=== PATIENT | female | born 1970 | race Caucasian/White ===

== ENCOUNTER 2017-08-27 10:48 | Emergency (ER) | payer MEDICAID ==
[~2017-08-27 10:48] MED LIST: CLINDAMYCIN HC300 MG PO; LAC PO; LEVEMIR100 U/M1 SQ; NEOSPORIN1 OIN TP; ZOF4 PO
[2017-08-27 12:08] LABS: RED CELL DISTRIBUTION WIDTH 12.7 % (11.5-14.5)
[2017-08-27 12:11] LABS: PLATELET COUNT 164 x10^3mcL (130-400)
[2017-08-27 12:19] LABS: CALCIUM 8.5 mg/dL (8.5-10.1); CHLORIDE SERUM 99 mmol/L (98-107); CREATININE SERUM 0.9 mg/dL (0.6-1.0); GFR1 > 60 mL/min; GLUCOSE SERUM 247 mg/dL (74-106); POTASSIUM SERUM 3.7 mmol/L (3.5-5.1); SODIUM SERUM 132 mmol/L (136-145)
[2017-08-27 12:22] LABS: BASOPHIL % 4.2 % (0-2)
[2017-08-27 12:26] LABS: ALBUMIN 3.4 g/dL (3.4-5.0); ALKALINE PHOSPHATASE 81 U/L (46-116); ALT/SGPT 30 U/L (14-59); AST/SGOT 21 U/L (15-37); BILIRUBIN TOTAL 0.81 mg/dL (0.20-1.00); LIPASE 118 IU/L (73-393); TOTAL PROTEIN, SERUM 7.5 g/dL (6.4-8.2)
[2017-08-27 12:36] LABS: AMYLASE 24 U/L (25-115)
[2017-08-27 13:39] VITALS: BP 135/69
== END 2017-08-27 13:39 | disposition home or self-care (01) ==
LOC: ED 10:48
PROVIDERS: Emergency Medicine
DX: K52.9 Noninfective gastroenteritis and colitis, unspecified (principal); I10 Essential (primary) hypertension; E11.9 Type 2 diabetes mellitus without complications; Z79.84 Long term (current) use of oral hypoglycemic drugs
CPT/HCPCS: 36415; 83880; J1885; Q0162

== ENCOUNTER 2019-03-29 20:34 | Emergency (ER) | payer MEDICAID ==
[~2019-03-29] VITALS: Ht 160 cm; Wt 96.2 kg
[2019-03-29 21:30] LABS: BASOPHIL % 1.5 % (0-2); PLATELET COUNT 196 x10^3mcL (130-400); RED CELL DISTRIBUTION WIDTH 13.9 % (11.5-14.5)
[2019-03-29 21:32] LABS: CALCIUM 8.5 mg/dL (8.5-10.1); CARBON DIOXIDE 24.7 mmol/L (21-32); CHLORIDE SERUM 102 mmol/L (98-107); CREATININE SERUM 0.8 mg/dL (0.6-1.0); GFR1 > 60 mL/min; GLUCOSE SERUM 308 mg/dL (74-106); SODIUM SERUM 136 mmol/L (136-145)
[2019-03-29 21:34] LABS: ALBUMIN 3.4 g/dL (3.4-5.0); ALKALINE PHOSPHATASE 82 U/L (46-116); ALT/SGPT 42 U/L (14-59); AMYLASE 63 U/L (25-115); AST/SGOT 31 U/L (15-37); BILIRUBIN TOTAL 0.51 mg/dL (0.20-1.00); LIPASE 297 IU/L (73-393); TOTAL PROTEIN, SERUM 6.8 g/dL (6.4-8.2)
[2019-03-29 21:36] LABS: POTASSIUM SERUM 4.6 mmol/L (3.5-5.1)
[2019-03-30 00:10] VITALS: BP 157/78
== END 2019-03-30 00:13 | disposition home or self-care (01) ==
LOC: ED 20:34
PROVIDERS: Specialist
DX: K80.70 Calculus of gallbladder and bile duct without cholecystitis without obstruction (principal); I10 Essential (primary) hypertension; E11.9 Type 2 diabetes mellitus without complications; E78.00 Pure hypercholesterolemia, unspecified
CPT/HCPCS: 82962; J1885; J2405; J3010; J7030; Q9967

== ENCOUNTER 2019-09-17 15:35 | Emergency (ER) | payer OTHER ==
[~2019-09-17] VITALS: Ht 162.6 cm; Wt 94.3 kg
[2019-09-17 15:54] VITALS: Ht 162.6 cm; Wt 94.3 kg
[2019-09-17 18:39] VITALS: BP 157/82
== END 2019-09-17 18:39 | disposition home or self-care (01) ==
LOC: ED 15:35
DX: S46.912A Strain of unspecified muscle, fascia and tendon at shoulder and upper arm level, left arm, initial encounter (principal); S09.8XXA Other specified injuries of head, initial encounter; M54.5 Low back pain; I10 Essential (primary) hypertension; E11.9 Type 2 diabetes mellitus without complications; E78.00 Pure hypercholesterolemia, unspecified; W18.39XA Other fall on same level, initial encounter; Y93.89 Activity, other specified; Y92.89 Other specified places as the place of occurrence of the external cause; Y99.8 Other external cause status
CPT/HCPCS: J1885

== ENCOUNTER 2020-01-25 16:31 | Emergency (ER) | payer MEDICAID ==
[~2020-01-25] VITALS: Ht 162.6 cm; Wt 96.2 kg
[2020-01-25 18:26] VITALS: BP 137/90
== END 2020-01-25 18:26 | disposition home or self-care (01) ==
LOC: ED 16:31
DX: S92.512A Displaced fracture of proximal phalanx of left lesser toe(s), initial encounter for closed fracture (principal); I10 Essential (primary) hypertension; E11.9 Type 2 diabetes mellitus without complications; E78.00 Pure hypercholesterolemia, unspecified; X58.XXXA Exposure to other specified factors, initial encounter; Y93.89 Activity, other specified; Y92.89 Other specified places as the place of occurrence of the external cause; Y99.8 Other external cause status
CPT/HCPCS: J1885